=== PATIENT | male | born 1985 ===

== ENCOUNTER 2016-06-27 16:34 | Emergency (ER) | payer SELFPAY ==
[~2016-06-27] VITALS: Ht 160 cm; Wt 80.0 kg
[2016-06-27 16:53] VITALS: Ht 160 cm; Wt 80.0 kg
[2016-06-27] MEDS ORDERED: SOD CHLORIDE 0.9% 1,000 ML IV STA (18:41)
[2016-06-27] MEDS ORDERED: ONDANSETRON 4 MG INJ IV STA (18:41)
[2016-06-27] MEDS ORDERED: morphine 4 MG/ML VIAL IV STA (18:41)
--- NOTE | 2016-06-27 19:35 | RADRPT ---
PROCEDURE: US Scrotum. CLINICAL INDICATION: Pain. TECHNIQUE: Multiple sonographic images of the scrotal region were obtained utilizing a linear arra y transducer with grayscale and color-flow and a Doppler imaging. The images were reviewed on a high -resolution PACS workstation. COMPARISON: No prior studies are available for comparison. FINDINGS: Right hemiscrotum: Testis: Normal in size, morphology and without mass. Slightly increased blood flow is present. Te sticular size is estimated at 3.8 x 2.7 x 2.5 centimeters. Epididymis: A small epididymal head cyst is suspected estimated at 3 mm. There is slight hypervasc ular blood flow within the heterogeneously appearing epididymis concern for epididymitis although ep ididymal size is normal measuring 1.3 cm. Hydrocele: Small to moderate in size, simple in appearance. Varicocele: None identified. Scrotal skin: Not thickened. Left hemiscrotum: Testis: Normal in size, morphology and without mass. There is normal blood flow. Testicular size i s estimated at 3.2 x 3 x 2.1 centimeters. Epididymis: No abnormalities are identified, normal size and blood flow is demonstrated. Hydrocele: None identified. Varicocele: None identified. Scrotal skin: Not thickened. RPTAT:HJJR IMPRESSION: 1. Findings concerning for right sided epididymo-orchitis. Correlation with right-sided testicular pain is recommended. 2. Right-sided hydrocele simple in appearance. 3. Sonographically normal left epididymis and testis. Physician Maria Elena Date Time Electronically viewed and signed by Physician Maria Elena on 06/27/2016 19:34 /
[2016-06-27 20:25] LABS: POTASSIUM 3.9 mmol/L (3.5-5.1)
[2016-06-27 20:27] LABS: CREATININE 1.21 mg/dl (0.61-1.24)
[2016-06-27 20:28] LABS: ALBUMIN/GLOBULIN RATIO 1.08; BILIRUBIN,INDIRECT 0.5 mg/dl (0-1.1); BILIRUBIN,TOTAL 0.5 mg/dl (0.2-1.3); CALCIUM 9.6 mg/dl (8.4-10.2); HEMATOCRIT 47.2 % (42.0-52.0); MEAN CORPUSCULAR HEMOGLOBIN 31.4 pg (29.0-33.0); MEAN CORPUSCULAR VOLUME 92.4 fl (82.0-101.0); MEAN PLATELET VOLUME 8.2 fl (7.4-10.4); PLATELET COUNT 242 10^3/UL (140-440); RED BLOOD COUNT 5.11 10^6/ul (4.70-6.10); TOTAL PROTEIN 7.7 g/dl (6.1-8.1)
[2016-06-27 20:36] LABS: SUSPECT 1
[2016-06-27 20:37] LABS: CONDITION 1; LH ANALYZER COMMENTS 1
--- NOTE | 2016-06-27 20:46 | RADRPT ---
PROCEDURE: CT Abdomen and Pelvis without contrast. CLINICAL INDICATION: Right lower quadrant pain, diarrhea, fatigue. TECHNIQUE: CT scan of the abdomen and pelvis without contrast was performed without intravenous co ntrast. Coronal and sagittal reformatted images were obtained from the axial source images. Images were reviewed on a high-resolution PACS workstation. The total exam DLP equals 1320 mGy-cm. One or more of the following dose reduction techniques were used: Automated exposure control Adjustment of the mA and/or kV according to patient size. Use of iterative reconstruction technique. COMPARISON: None. FINDINGS: The lung bases are clear. The heart size is normal. The aorta and its branches are normal in size and caliber. The kidneys are symmetric in size and density. There is no perinephric fat stranding. There is no ne phroureterolithiasis or hydronephrosis. The ureters are normal in course and caliber. Evaluation of solid organs is limited due to the lack of intravenous contrast. However, the liver, g allbladder, spleen, pancreas, and adrenal glands are unremarkable. Evaluation of the gastrointestinal tract is limited due to the lack of oral contrast. The distal es ophagus is unremarkable. The stomach is partially decompressed. The small bowel loops are normal in caliber without evidence of small bowel obstruction. The appendix is visualized, and is normal. Th ere is no free intraperitoneal fluid or pneumoperitoneum. There is no mesenteric, retroperitoneal, or pelvic lymphadenopathy. The bladder is distended, but grossly unremarkable. The prostate and seminal vesicles are unremarkab le. There is no pelvic free fluid. There are no acute fractures. Small Schmorl's nodes are noted at a few levels within the thoracolum bar spine. There is a small cyst within the anterior femoral head neck junction of the left hip. T here are no acute fractures. RPTAT: QQ IMPRESSION: No acute intra-abdominal abnormality. No mass, lymphadenopathy, or focal acute inflammatory process is identified. .Rosio Briggs MD, Date Time Electronically viewed and signed by .Rosio Briggs MD, on 06/27/2016 20:45 .T/
[2016-06-27] MEDS ORDERED: HYDROmorphONE 1 MG/ML SYG IV STA (20:47)
[2016-06-27 21:12] LABS: BASOPHIL # 0.3 10^3/ul (0.0-0.1); LYMPHOCYTES # 1.7 10^3/ul (0.8-2.9); MONOCYTE # 1.7 10^3/ul (0.3-0.9); NEUTROPHIL # 22.7 10^3/ul (1.6-7.5)
[2016-06-27 21:45] LABS: ADD UMIC YES; URINE BILIRUBIN (Dip) NEGATIVE (NEGATIVE); URINE BLOOD (Dip) 2+ (NEGATIVE); URINE COLOR LT. YELLOW (YELLOW); URINE GLUCOSE (Dip) NEGATIVE (NEGATIVE); URINE KETONES (Dip) 40 (NEGATIVE); URINE LEUKOCYTE ESTERASE (Dip) 3+ (NEGATIVE); URINE NITRITE (Dip) POSITIVE (NEGATIVE); URINE TOTAL PROTEIN (Dip) 1+ (NEGATIVE); URINE UROBILINOGEN (Dip) 1.0 E.U./dL (0.1-1.0)
[2016-06-27 22:27] LABS: BACTERIA,URINE MANY; SQUAMOUS EPITHELIAL CELL,UR FEW
[2016-06-27] MEDS ORDERED: CEFTRIAXONE 250 MG INJ IM ONE (22:30)
[2016-06-27] MEDS ORDERED: LIDOCAINE 1% (MDV) 20 ML INJ SC ONE (22:30)
[2016-06-27] MEDS ORDERED: DOXYCYCLINE 100 MG in SOD CHLORIDE 0.9% 250 ML IVPB SCH (22:30)
[2016-06-27] MEDS ORDERED: HYDR-906 PO (23:22)
[2016-06-27] MEDS ORDERED: DOXY100T20 PO (23:22)
[2016-06-27] MEDS ORDERED: CIPR500T4 PO (23:25)
--- NOTE | 2016-06-27 23:48 | ERD ---
ER Documentation Chief Complaint Date/Time DATE: 06/27/16 TIME: 23:44 Chief Complaint RT LOWER ABDOMINAL PAIN SINCE LAST NIGHT WITH BLOOD IN URINE HPI 31-year-old male with no significant past medical history presents the ED complaining of right lower quadrant abdominal pain that started 3 days ago. Reports that this pain is a sharp-like sensation and rates it a 10 out of 10. States that he noticed his right testicle was very painful and became very red and swollen. States that it is very tender to touch. Reports that he has some slight hematuria and penile discharge. States that he has some tactile fevers. Denies any chest pain, shortness of breath, nausea, vomiting, diarrhea, flank pain, dysuria, burning with urination. Dates that he is sexually active. Reports that he had unprotected intercourse 2 weeks ago with one partner. ROS All systems reviewed and are negative except as per history of present illness. Medications Home Meds Active Scripts Ciprofloxacin Hcl* (Ciprofloxacin Hcl*) 500 Mg Tablet, 500 MG PO BID for 10 Days , TAB Prov:KATHI MARTINEZ PA-C 06/27/16 Hydrocodone/Acetaminophen (Ronco 5-325 Tablet) 1 Each Tablet, 1 TAB PO Q6H Y for PAIN, #12 TAB Prov:KATHI MARTINEZ PA-C 06/27/16 Doxycycline Hyclate* (Doxycycline Hyclate*) 100 Mg Tablet.dr, 100 MG PO BID for 10 Days, TAB Prov:KATHI MARTINEZ PA-C 06/27/16 Allergies Allergies: Coded Allergies: No Known Allergy (Unverified , 06/27/16) PMhx/Soc Medical and Surgical Hx: pt denies Medical Hx, pt denies Surgical Hx Hx Alcohol Use: Yes (OCCASIONAL) Hx Substance Use: No Hx Tobacco Use: Yes Smoking Status: Current every day smoker Physical Exam Vitals Vital Signs Date Time Temp Pulse Resp B/P Pulse Ox O2 Delivery O2 Flow Rate FiO2 06/27/16 16:53 100.0 128 22 120/64 99 Physical Exam Const: Fva-[id number]-[id number], well-nourished. In no acute distress. Head: Atraumatic, normocephalic Eyes: Normal Conjunctiva without injection. No purulent discharge. ENT: Normal external ear, nose. Moist oropharynx without tonsillar exudates. Non -erythematous pharynx. Uvula midline. No drooling. No trismus. Neck: No cervical midline tenderness. Full range of motion. No meningismus. No cervical lymphadenopathy. No JVD. Resp: Clear to auscultation bilaterally. No wheezing, rhonchi, rales, or crackles. No accessory muscle use. No retractions. Cardio: Regular rate and rhythm. No murmurs, rubs or gallops. Abd: Soft, right lower quadrant tenderness, non distended. Normal bowel sounds. No palpable masses. No rebound tenderness. No guarding. Negative McBurney' s point. Negative psoas sign. Negative obturator sign. : Uncircumcised penis. No paraphimosis. No phimosis. Erythematous edematous right testicle that is very tender to touch. No perineal pain. No purulent discharge noted. No bleeding noted. No rashes noted. Skin: No petechiae or rashes Back: No midline tenderness. No CVA tenderness. Ext: No cyanosis, or edema. Neur: Awake and alert. Normal gait. Normal coordination. Psych: Normal Mood and Affect Result Diagram: 06/27/16189906/27/161899 Results 24 hrs Laboratory Tests Test 06/27/16 19:00 06/27/16 21:20 Alanine Aminotransferase (ALT/SGPT) 26IU/L Albumin 4.0g/dl Albumin/Globulin Ratio 1.08 Alkaline Phosphatase 128IU/L Anion Gap 20 Aspartate Amino Transf (AST/SGOT) 18IU/L Basophils # 0.310^3/ul Basophils % 1.0% Blood Urea Nitrogen 12mg/dl Calcium Level 9.6mg/dl Carbon Dioxide Level 25mmol/L Chloride Level 100mmol/L Creatinine 1.21mg/dl Direct Bilirubin 0.00mg/dl Eosinophils # 10^3/ul Eosinophils % % Globulin 3.70g/dl Glucose Level 114mg/dl Hematocrit 47.2% Hemoglobin 16.0g/dl Indirect Bilirubin 0.5mg/dl Lipase 25U/L Lymphocytes # 1.710^3/ul Lymphocytes % 6.0% Mean Corpuscular Hemoglobin 31.4pg Mean Corpuscular Hemoglobin Concent 34.0g/dl Mean Corpuscular Volume 92.4fl Mean Platelet Volume 8.2fl Monocytes # 1.710^3/ul Monocytes % 6.0% Neutrophils # 22.710^3/ul Neutrophils % 81.0% Nucleated Red Blood Cells # 10^3/ul Nucleated Red Blood Cells % 0.0/100WBC Platelet Count 53868^3/UL Potassium Level 3.9mmol/L Red Blood Count 5.1110^6/ul Red Cell Distribution Width 13.0% Sodium Level 141mmol/L Total Bilirubin 0.5mg/dl Total Protein 7.7g/dl White Blood Count 28.010^3/ul Urine Bacteria MANY Urine Bilirubin NEGATIVE Urine Clarity SLIGHTLY CLOUDY Urine Color LT. YELLOW Urine Glucose NEGATIVE% Urine Hemoglobin 2+ Urine Ketones 40 Urine Leukocyte Esterase 3+ Urine Microscopic RBC 5-10/HPF Urine Microscopic WBC >200/HPF Urine Nitrite POSITIVE Urine Specific [place] 1.015 Urine Squamous Epithelial Cells FEW Urine Total Protein 1+ Urine Urobilinogen 1.0 E.U./dL Urine pH 6.0 Current Medications Medications (Trade) Dose Ordered Sig/Samantha Route PRN Reason Start Time Stop Time Status Last Admin Dose Admin Sodium Chloride (NS) 1,000 ml @ 1,000 mls/hr Q1H STAT IV 06/27/16 18:41 06/27/16 19:40 DC 06/27/16 19:50 Morphine Sulfate (morphine) 4 mg ONCE STAT IV 06/27/16 18:41 06/27/16 18:44 DC 06/27/16 19:42 Ondansetron HCl (Zofran Inj) 4 mg ONCE STAT IV 06/27/16 18:41 06/27/16 18:44 DC 06/27/16 19:43 Hydromorphone HCl (Dilaudid) 1 mg ONCE STAT IV 06/27/16 20:47 06/27/16 20:49 DC 06/27/16 21:03 Ceftriaxone Sodium (Rocephin) 250 mg ONCE ONCE IM 06/27/16 22:30 06/27/16 22:31 DC 06/27/16 22:27 Lidocaine 20 ml 20 ml ONCE ONCE SC 06/27/16 22:30 06/27/16 22:31 DC 06/27/16 22:27 Doxycycline Hyclate/Sodium Chloride (Vibramycin/NS) 250 ml @ 250 mls/hr ONCE IVPB 06/27/16 22:30 06/27/16 22:53 Procedures/MDM This is a 31-year-old male with no sniffing past medical history presents the ED complaining of right lower quadrant pain and right testicular pain. Patient is afebrile and nontoxic appearing. Patient is slightly in distress due to his pain. Patient was noted to be tachycardic at 128. Patient was further worked up with CBC, CMP, lipase, UA, of the abdomen and pelvis without contrast, scrotal ultrasound. Patient's pain and symptoms have improved after treatment with 4 mg IV morphine, 4 mg IV Zofran, 1 mg IV Dilaudid. CBC: Leukocytosis of 28.0 likely secondary to epididymo-orchitis. No e/o anemia. CMP: No e/o severe acidosis, alkalosis, renal failure, diabetic ketoacidosis, liver disease Lipase within normal limits. Urine: 3+ leukocyte esterase, positive nitrite, 2+ hematuria, greater than 200 white blood cells noted. PROCEDURE: CT Abdomen and Pelvis without contrast. CLINICAL INDICATION: Right lower quadrant pain, diarrhea, fatigue. TECHNIQUE: CT scan of the abdomen and pelvis without contrast was performed without intravenous contrast. Coronal and sagittal reformatted images were obtained from the axial source images. Images were reviewed on a high- resolution PACS workstation. The total exam DLP equals 1320 mGy-cm. One or more of the following dose reduction techniques were used: Automated exposure control Adjustment of the mA and/or kV according to patient size. Use of iterative reconstruction technique. COMPARISON: None. FINDINGS: The lung bases are clear. The heart size is normal. The aorta and its branches are normal in size and caliber. The kidneys are symmetric in size and density. There is no perinephric fat stranding. There is no nephroureterolithiasis or hydronephrosis. The ureters are normal in course and caliber. Evaluation of solid organs is limited due to the lack of intravenous contrast. However, the liver, gallbladder, spleen, pancreas, and adrenal glands are unremarkable. Evaluation of the gastrointestinal tract is limited due to the lack of oral contrast. The distal esophagus is unremarkable. The stomach is partially decompressed. The small bowel loops are normal in caliber without evidence of small bowel obstruction. The appendix is visualized, and is normal. There is no free intraperitoneal fluid or pneumoperitoneum. There is no mesenteric, retroperitoneal, or pelvic lymphadenopathy. The bladder is distended, but grossly unremarkable. The prostate and seminal vesicles are unremarkable. There is no pelvic free fluid. There are no acute fractures. Small Schmorl's nodes are noted at a few levels within the thoracolumbar spine. There is a small cyst within the anterior femoral head neck junction of the left hip. There are no acute fractures. RPTAT: QQ IMPRESSION: No acute intra-abdominal abnormality. No mass, lymphadenopathy, or focal acute inflammatory process is identified. PROCEDURE: US Scrotum. CLINICAL INDICATION: Pain. TECHNIQUE: Multiple sonographic images of the scrotal region were obtained utilizing a linear array transducer with grayscale and color-flow and a Doppler imaging. The images were reviewed on a high-resolution PACS workstation. COMPARISON: No prior studies are available for comparison. FINDINGS: Right hemiscrotum: Testis: Normal in size, morphology and without mass. Slightly increased blood flow is present. Testicular size is estimated at 3.8 x 2.7 x 2.5 centimeters. Epididymis: A small epididymal head cyst is suspected estimated at 3 mm. There is slight hypervascular blood flow within the heterogeneously appearing epididymis concern for epididymitis although epididymal size is normal measuring 1.3 cm. Hydrocele: Small to moderate in size, simple in appearance. Varicocele: None identified. Scrotal skin: Not thickened. Left hemiscrotum: Testis: Normal in size, morphology and without mass. There is normal blood flow. Testicular size is estimated at 3.2 x 3 x 2.1 centimeters. Epididymis: No abnormalities are identified, normal size and blood flow is demonstrated. Hydrocele: None identified. Varicocele: None identified. Scrotal skin: Not thickened. RPTAT:HJJR IMPRESSION: 1. Findings concerning for right sided epididymo-orchitis. Correlation with right-sided testicular pain is recommended. 2. Right-sided hydrocele simple in appearance. 3. Sonographically normal left epididymis and testis. Patient symptoms are likely due to his right-sided epididymoorchitis. Patient was treated here in the ED with 250 mg IM ceftriaxone with 100 mg doxycycline here in the ED. Patient also was noted to have a possible urinary tract infection. A differential diagnosis considered includes but is not limited to gastritis, GERD, peptic ulcer disease, cholecystitis, choledocholithiasis, cholangitis, pancreatitis, appendicitis, bowel obstruction, ileus, volvulus, nephrolithiasis, pyelonephritis, hepatitis, perforated viscus, diverticulitis, abdominal hernia, acute abdomen, mesenteric ischemia or other emergent conditions. 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 Instructed patient to return to the ED sooner for any worsening symptoms. Patient's questions were answered. Patient understood and agreed with discharge plan. Patient discharged stable. Departure Diagnosis: Primary Impression: Epididymo-orchitis Condition: Stable Patient Instructions: Treating Epididymitis and Orchitis, What Are Epididymitis and Orchitis?, Urinary Tract Infections in Men Referrals: COMMUNITY CLINICS YOU HAVE RECEIVED A MEDICAL SCREENING EXAM AND THE RESULTS INDICATE THAT YOU DO NOT HAVE A CONDITION THAT REQUIRES URGENT TREATMENT IN THE EMERGENCY DEPARTMENT. FURTHER EVALUATION AND TREATMENT OF YOUR CONDITION CAN WAIT UNTIL YOU ARE SEEN IN YOUR DOCTORS OFFICE WITHIN THE NEXT 1-2 DAYS. IT IS YOUR RESPONSIBILITY TO MAKE AN APPOINTMENT FOR FOLOW-UP CARE. IF YOU HAVE A PRIMARY DOCTOR --you should call your primary doctor and schedule an appointment IF YOU DO NOT HAVE A PRIMARY DOCTOR YOU CAN CALL OUR PHYSICIAN REFERRAL HOTLINE AT IF YOU CAN NOT AFFORD TO SEE A PHYSICIAN YOU CAN CHOSE FROM THE FOLLOWING [facility] [address] [facility]. [facility] [address] [facility] [facility] [address] [facility] [facility] [address] [facility] [facility] [address] [facility]. [facility]. [address] [facility]. [facility] YOU HAVE RECEIVED A MEDICAL SCREENING EXAM AND THE RESULTS INDICATE THAT YOU DO NOT HAVE A CONDITION THAT REQUIRES URGENT TREATMENT IN THE EMERGENCY DEPARTMENT. FURTHER EVALUATION AND TREATMENT OF YOUR CONDITION CAN WAIT UNTIL YOU ARE SEEN IN YOUR DOCTORS OFFICE WITHIN THE NEXT 1-2 DAYS. IT IS YOUR RESPONSIBILITY TO MAKE AN APPOINTMENT FOR FOLOW-UP CARE. IF YOU HAVE A PRIMARY DOCTOR --you should call your primary doctor and schedule and appointment IF YOU DO NOT HAVE A PRIMARY DOCTOR YOU CAN CALL OUR PHYSICIAN REFERRAL HOTLINE AT . IF YOU CAN NOT AFFORD TO SEE A PHYSICIAN YOU CAN CHOSE FROM THE FOLLOWING [facility] INSTITUTIONS: [facility] [address] [place] [address] [facility] [address] [place] [address] [facility] [address] [place] [address] [facility] URGENT CARE/SPECIALTIES Additional Instructions: FOLLOW UP WITH YOUR PRIMARY CARE PHYSICIAN TOMORROW.Return to this facility if you are not improving as expected. KATHI MARTINEZ PA-C Jun 27, 2016 23:48
[2016-06-27] MEDS ORDERED: IBUP800T25 PO (23:54)
[2016-06-28] MEDS ORDERED: ACETAMINOPHEN 325 MG TAB PO ONE
[2016-06-28] MEDS ORDERED: IBUPROFEN 600 MG TAB PO ONE
[2016-06-28 00:30] VITALS: BP 110/60; PULSE 113; RESP 18; TEMP 99
== END 2016-06-28 00:35 | disposition home or self-care (01) ==
LOC: FTE 16:34
DX: N45.3 Epididymo-orchitis (principal); F17.210 Nicotine dependence, cigarettes, uncomplicated
CPT/HCPCS: 74176; 76870; 80053; 81001; 83690; 85025; 87591; J0696; J1170; J2270; J2405; J7030; J7050; 36415; 81003; 96372; 96374; 96375